=== PATIENT | male | born 2000 | race Hispanic/Latino ===

== ENCOUNTER 2021-04-03 10:10 | Emergency (ER) | payer OTHER ==
[~2021-04-03] VITALS: Ht 170.2 cm; Wt 82.0 kg
[2021-04-03] MEDS ORDERED: BACITRACIN OINTMENT 30GM TUBE TOP STA (11:28)
[2021-04-03] MEDS ORDERED: BACI500O21 TOP (11:30)
[2021-04-03] MEDS ORDERED: IBUP-1022 PO (11:30)
[2021-04-03] MEDS ORDERED: TRAM50TA2 PO (11:56)
[2021-04-03 12:07] VITALS: BP 130/76
== END 2021-04-03 12:03 | disposition home or self-care (01) ==
LOC: M ED 10:10
DX: T23.202A Burn of second degree of left hand, unspecified site, initial encounter (principal); X17.XXXA Contact with hot engines, machinery and tools, initial encounter; Y92.410 Unspecified street and highway as the place of occurrence of the external cause; Y93.9 Activity, unspecified; Y99.9 Unspecified external cause status

== ENCOUNTER → 2022-08-14 | Outpatient (CLI) | payer OTHER ==
[~2022-08-14] MED LIST: BACI500O21 TOP; IBUP-1022 PO; TRAM50TA2 PO
== END ==
LOC: M RAD 13:50
PROVIDERS: ATTEND Physician Assistant
DX: R06.00 Dyspnea, unspecified (principal)

== ENCOUNTER → 2022-11-07 | Outpatient (CLI) | payer OTHER ==
[~2022-11-07] MED LIST changes: +METHACHOLINE KIT INH ONE
== END ==
LOC: M CARPUL 13:55
PROVIDERS: ATTEND Physician Assistant
DX: R06.00 Dyspnea, unspecified (principal)

== ENCOUNTER → 2023-06-05 | Outpatient (CLI) | payer OTHER ==
[~2023-06-05] MED LIST changes: +LIDO5DIS41 TD; +MEDR4PAK PO; -METHACHOLINE KIT INH ONE
[2023-06-05 16:10] LABS: BASO % 0.4 % (0.0-1.0); EOS # 0.2 10^3/uL (0.0-0.5); EOS % 2.9 % (0.0-3.0); HEMATOCRIT 46.8 % (42.0-52.0); HEMOGLOBIN 16.6 g/dl (13.5-17.5); LYMPH # 2.3 10^3/uL (1.5-5.0); LYMPH % 44.2 % (24.0-44.0); MEAN CORPUSCULAR HEMOGLOBIN 32.5 pg (27.0-33.0); MEAN CORPUSCULAR HGB CONC 35.5 g/dl (32.0-36.5); MEAN CORPUSCULAR VOLUME 91.8 fl (80.0-96.0); MONO # 0.4 10^3/uL (0.0-0.8); MONO % 7.2 % (2.0-8.0); NEUTROPHILS # 2.3 10^3/uL (1.5-8.5); NEUTROPHILS % 45.1 % (36.0-66.0); PLATELET COUNT, AUTOMATED 207 10^3/uL (150-450); WHITE BLOOD COUNT 5.1 10^3/uL (4.0-10.0)
== END ==
LOC: M LAB 15:03
PROVIDERS: ATTEND Physician Assistant
DX: J45.40 Moderate persistent asthma, uncomplicated (principal); Z79.51 Long term (current) use of inhaled steroids
CPT/HCPCS: 36415; 82785; 85025; 86003; 94010; G0463

== ENCOUNTER 2023-09-04 08:23 | Day surgery (SDC) | payer OTHER ==
[~2023-09-04] VITALS: Ht 172.7 cm; Wt 89.8 kg
[~2023-09-04 08:23] MED LIST changes: +ADVA230A; +MONT10TA97 PO; +NAPR-885 PO; +PANT40TA29 PO; +SPIR12.9; +ZOLO100T PO
[2023-09-04] MEDS: NS 1,000 ML IV ONE (08:45)
[2023-09-04] MEDS ORDERED: fentaNYL 100 MCG/2 ML INJECTION As Ordered ONE (09:05)
[2023-09-04] MEDS ORDERED: propofoL 200 MG/20 ML VIAL As Ordered ONE (09:06)
[2023-09-04] MEDS ORDERED: LIDOCAINE 2% 100MG/5ML SDV (FOR ANES.) As Ordered ONE (09:06)
[2023-09-04 09:46] VITALS: TEMP 97.6
[2023-09-04 10:15] VITALS: BP 119/72; O2SAT 96
== END 2023-09-04 10:19 | disposition home or self-care (01) ==
LOC: M OPP 08:23
PROVIDERS: ATTEND Internal Medicine Gastroenterology
DX: K21.00 Gastro-esophageal reflux disease with esophagitis, without bleeding (principal); K29.70 Gastritis, unspecified, without bleeding; R11.2 Nausea with vomiting, unspecified; Z90.49 Acquired absence of other specified parts of digestive tract; J45.909 Unspecified asthma, uncomplicated; G47.30 Sleep apnea, unspecified; Z79.899 Other long term (current) drug therapy
CPT/HCPCS: 43239; 88305; J3010

== ENCOUNTER 2024-02-15 09:12 | Day surgery (SDC) | payer OTHER ==
[~2024-02-15] VITALS: Ht 170.2 cm; Wt 89.7 kg
[~2024-02-15 09:12] MED LIST changes: +ACETAMINOPHEN 1000MG 100ML IV BAG As Ordered ONE; +HYDR50TA70 PO; +LIDOCAINE 2% 100MG/5ML SDV (FOR ANES.) As Ordered ONE; +MIDAZOLAM INJ 2MG/2ML VIAL As Ordered ONE; +ROCURONIUM BROMIDE 50MG/5ML VIAL As Ordered ONE; +TADA5TAB PO; +fentaNYL 100 MCG/2 ML INJECTION As Ordered ONE
[2024-02-15] MEDS ORDERED: LR 1,000 ML IV SCH ×2 (09:20→12:05)
[2024-02-15] MEDS ORDERED: ONDANSETRON 4MG 2ML VIAL As Ordered ONE (10:10)
[2024-02-15] MEDS ORDERED: SUCCINYLCHOLINE 100MG/5ML SYRINGE As Ordered ONE (10:26)
[2024-02-15] MEDS ORDERED: propofoL 200 MG/20 ML VIAL As Ordered ONE (10:38)
[2024-02-15] MEDS ORDERED: fentaNYL 100 MCG/2 ML INJECTION IV PRN (11:05)
[2024-02-15] MEDS: ONDANSETRON 4MG 2ML VIAL IV PRN (11:28)
[2024-02-15] MEDS: LR 1,000 ML IV SCH (11:29)
[2024-02-15] MEDS: HYDROMORPHONE HCL 0.5 MG/ 0.5 ML SYRINGE IV PRN (11:29)
[2024-02-15] MEDS: oxyCODONE 5MG TAB PO PRN (11:29)
[2024-02-15 11:55] VITALS: BP 162/92; TEMP 97.9; O2SAT 100
[2024-02-15] MEDS ORDERED: HYDROcodone/APAP LIQUID 7.5-325MG 15ML UDC (LORTAB ELIXIR) PO PRN (12:10)
== END 2024-02-15 12:45 | disposition home or self-care (01) ==
LOC: M SDC 09:12
PROVIDERS: ATTEND Otolaryngology
DX: J35.3 Hypertrophy of tonsils with hypertrophy of adenoids (principal); J45.909 Unspecified asthma, uncomplicated; G47.30 Sleep apnea, unspecified; F41.9 Anxiety disorder, unspecified; F32.A Depression, unspecified; Z79.899 Other long term (current) drug therapy; K21.9 Gastro-esophageal reflux disease without esophagitis
CPT/HCPCS: 42821; 88302; J0131; J0330; J0665; J1100; J1170; J2250; J2405; J3010

== ENCOUNTER 2024-02-20 09:24 | Emergency (ER) | payer OTHER ==
[~2024-02-20] VITALS: Ht 170.2 cm; Wt 85.4 kg
[~2024-02-20 09:24] MED LIST changes: -ACETAMINOPHEN 1000MG 100ML IV BAG As Ordered ONE; -LIDOCAINE 2% 100MG/5ML SDV (FOR ANES.) As Ordered ONE; -MIDAZOLAM INJ 2MG/2ML VIAL As Ordered ONE; -ROCURONIUM BROMIDE 50MG/5ML VIAL As Ordered ONE; -fentaNYL 100 MCG/2 ML INJECTION As Ordered ONE
[2024-02-20] MEDS ORDERED: TRAM50TA2 PO (09:40)
[2024-02-20] MEDS ORDERED: IBUP-1114 PO (11:50)
[2024-02-20] MEDS: NS 1,000 ML IV ONE (12:33)
[2024-02-20] MEDS: KETOROLAC 30 MG/ML 1ML VIAL IV ONE (12:35)
[2024-02-20] MEDS: MORPHINE 4 MG/ML 1ML VIAL IV ONE (12:36)
[2024-02-20 12:48] LABS: HEMATOCRIT 49.1 % (42.0-52.0); HEMOGLOBIN 17.4 g/dl (13.5-17.5); MEAN CORPUSCULAR HGB CONC 35.4 g/dl (32.0-36.5); MEAN CORPUSCULAR VOLUME 90.4 fl (80.0-96.0); PLATELET COUNT, AUTOMATED 241 10^3/uL (150-450); RED BLOOD COUNT 5.43 10^6/uL (4.30-6.10); WHITE BLOOD COUNT 8.2 10^3/uL (4.0-10.0)
[2024-02-20] MEDS: NS 500 ML IV ONE (13:50)
[2024-02-20] MEDS: dexAMETHasone 20MG/5ML VIAL IV ONE (14:09)
[2024-02-20 14:13] VITALS: BP 143/62; TEMP 97.8; O2SAT 98
[2024-02-20] MEDS ORDERED: HYDR1SOL17 PO (14:27)
[2024-02-20] MEDS ORDERED: CETI10CH PO (14:30)
== END 2024-02-20 14:41 | disposition home or self-care (01) ==
LOC: M ED 09:24
DX: J95.830 Postprocedural hemorrhage of a respiratory system organ or structure following a respiratory system procedure (principal)
CPT/HCPCS: 85027; 86850; 86900; 86901; 96361; 96374; 96375; 99283; J1100; J1885